=== PATIENT | female | born 1980 | race Caucasian/White ===

== ENCOUNTER 2016-07-06 08:24 | Emergency (ER) | payer OTHER ==
[~2016-07-06] VITALS: Ht 160 cm; Wt 58.1 kg
[~2016-07-06 08:24] MED LIST: ACETAMINOPHEN325 M1; IBUPROFEN 400400 M1; IBUPROFEN 600600 M1 PO; IBUPROFEN 800800 MG PO; IRON325; LANOLIN56 GM; LORTAB 5 MG/5001 TAB PO; NORCO 5-325 TA1 EACH PO; PRENATAL COMPL1 EACH PO; STOOL SOFTENER240 MG PO; VALTREX 500 MG500 MG PO; ZPAK PO
[2016-07-06 08:27] VITALS: BP 108/69
[2016-07-06] MEDS ORDERED: IBUPROFEN 600600 M1 PO (08:46)
[2016-07-06] MEDS ORDERED: PROMETHAZINE D480 ML PO (08:46)
== END 2016-07-06 09:10 | disposition home or self-care (01) ==
LOC: ER 08:24
DX: J06.9 Acute upper respiratory infection, unspecified (principal); Z97.5 Presence of (intrauterine) contraceptive device; F10.99 Alcohol use, unspecified with unspecified alcohol-induced disorder

== ENCOUNTER 2016-07-27 11:02 | Emergency (ER) | payer OTHER ==
[~2016-07-27] VITALS: Ht 160 cm; Wt 59.0 kg
--- NOTE | ~2016-07-27 | EKG ---
[address] [address] ELECTROCARDIOGRAM REPORT Name: SIA FLOWERS [facility] [place] [id number] Admission: 07/27/16 Attend Phys: Discharge: 07/27/16 Date of : 84 Report #: [id number] THIS REPORT FOR: //name// 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 : 1980 Requested By: Good Suazo Order Number: [id number] MD: Rashawn Thompson Measurements Intervals [place] Rate: 62 P: 62 MA: 137 QRS: -22 QRSD: 82 T: 62 QT: 414 QTc: 421 Interpretive Statements Sinus rhythm Probable left atrial enlargement Borderline left axis deviation RSR' in V1 or V2, probably normal variant Compared to ECG 07/24/2016 09:52:27 RSR' in V1 or V2 now present Electronically Signed On 07-27-2016 22:41:20 CDT by Rashawn Thompson [email or web address] <ELECTRONICALLY SIGNED> By: Rashawn Thompson MD 07/27/16 2241 1113 1113 Rashawn Thompson MD /EPI
[~2016-07-27 11:02] MED LIST changes: +PROMETHAZINE D480 ML PO
[2016-07-27 11:59] LABS: ANION GAP 8 mmol/L (7-16); BUN 14 mg/dL (7-18); CALCIUM 9.4 mg/dL (8.5-10.1); CHLORIDE 105 mmol/L (98-107); CO2 24 mmol/L (21-32); CREATININE 0.7 mg/dL (0.6-1.0); GLUCOSE 87 mg/dL (74-106); POTASSIUM 4.2 mmol/L (3.5-5.1); SODIUM 137 mmol/L (136-145)
[2016-07-27 12:03] LABS: ABSOLUTE NEUTROPHILS 3.6 thou/uL (1.4-8.2); BASOPHILS 0.8 % (0.0-2.0); EOSINOPHILS 2.8 % (0.0-3.0); HEMOGLOBIN 13.1 gm/dL (12.0-15.0); LYMPHOCYTES 26.7 % (24.0-44.0); MANUAL DIFF NO; MCH 28.3 pg (26.0-34.0); MCHC 33.7 g/dL (28.0-37.0); MCV 84.1 fL (80.0-100.0); MONOCYTES 11.4 % (1.0-8.0); PLATELET COUNT 235 thou/uL (150-400); POLYS 58.3 % (36.0-66.0); RBC 4.63 mil/uL (4.20-5.00); RDW 13.6 % (10.5-14.5); WBC 6.2 thou/uL (4.0-11.0)
[2016-07-27 12:10] LABS: TROPONIN-I < 0.04 ng/mL (<0.04-0.07)
[2016-07-27] MEDS ORDERED: NORCO 5-325 TA1 EACH PO (13:03)
[2016-07-27] MEDS ORDERED: IBUPROFEN 800800 M1 PO (13:03)
[2016-07-27] MEDS ORDERED: FLEXERIL PO (13:03)
[2016-07-27 13:37] VITALS: BP 120/76
== END 2016-07-27 13:38 | disposition home or self-care (01) ==
LOC: ER 11:02
PROVIDERS: Emergency Medicine
DX: R07.89 Other chest pain (principal); Z98.890 Other specified postprocedural states

== ENCOUNTER 2016-10-05 23:53 | Emergency (ER) | payer OTHER ==
[~2016-10-05] VITALS: Ht 160 cm; Wt 59.0 kg
[~2016-10-05 23:53] MED LIST changes: +FLEXERIL PO; +IBUPROFEN 800800 M1 PO
[2016-10-05 23:58] VITALS: BP 108/67
[2016-10-06] MEDS ORDERED: NAPROSYN500 MG PO (00:08)
[2016-10-06] MEDS ORDERED: LIORESAL 10 MG10 MG PO (00:08)
[2016-10-06 00:39] LABS: ABSOLUTE NEUTROPHILS 3.4 thou/uL (1.4-8.2); BASOPHILS 0.9 % (0.0-2.0); EOSINOPHILS 4.5 % (0.0-3.0); HEMATOCRIT 35.8 % (37.0-47.0); HEMOGLOBIN 12.3 gm/dL (12.0-15.0); LYMPHOCYTES 43.9 % (24.0-44.0); MCH 29.3 pg (26.0-34.0); MCHC 34.4 g/dL (28.0-37.0); MCV 85.1 fL (80.0-100.0); MONOCYTES 8.2 % (1.0-8.0); PLATELET COUNT 282 thou/uL (150-400); POLYS 42.5 % (36.0-66.0); RBC 4.21 mil/uL (4.20-5.00); RDW 13.2 % (10.5-14.5); WBC 7.9 thou/uL (4.0-11.0)
[2016-10-06 00:40] LABS: MANUAL DIFF NO
[2016-10-06 00:47] LABS: CALCIUM 8.9 mg/dL (8.5-10.1); CREATININE 0.8 mg/dL (0.6-1.0); POTASSIUM 3.6 mmol/L (3.5-5.1)
[2016-10-06 00:51] LABS: ALBUMIN 3.7 g/dL (3.4-5.0); TOTAL BILIRUBIN 0.5 mg/dL (<0.1-1.0)
== END 2016-10-06 01:17 | disposition home or self-care (01) ==
LOC: ER 23:53
PROVIDERS: Emergency Medicine
DX: M79.661 Pain in right lower leg (principal); F10.99 Alcohol use, unspecified with unspecified alcohol-induced disorder

== ENCOUNTER 2017-02-23 09:19 | Emergency (ER) | payer OTHER ==
[~2017-02-23] VITALS: Ht 160 cm; Wt 55.3 kg
--- NOTE | ~2017-02-23 | EKG ---
[address] [address] ELECTROCARDIOGRAM REPORT Name: SIA FLOWERS 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: [facility] : 1980 Requested By: Stevenson Wilson Order Number: [id number] MD: Rashawn Thompson Measurements Intervals [place] Rate: 58 P: 43 [place]: 147 QRS: -7 QRSD: 87 T: 54 QT: 400 QTc: 393 Interpretive Statements Sinus rhythm Probable left atrial enlargement Compared to ECG 07/27/2016 11:13:30 Right ventricular hypertrophy now present Electronically Signed On 02-23-2017 16:34:32 CARD FOLDER by Rashawn Thompson [email or web address] <ELECTRONICALLY SIGNED> By: Rashawn Thompson MD 02/23/17 1634 [id number] Rashawn Thompson MD /SEMAJ
[~2017-02-23 09:19] MED LIST changes: +LIORESAL 10 MG10 MG PO; +NAPROSYN500 MG PO
[2017-02-23 09:42] LABS: URINE BILIRUBIN NEGATIVE (Negative); URINE BLOOD NEGATIVE (Negative); URINE COLOR YELLOW; URINE GLUCOSE-RANDOM* NEGATIVE (Negative); URINE KETONES NEGATIVE (Negative); URINE NITRITE NEGATIVE (Negative); URINE PROTEIN (DIPSTICK) NEGATIVE (Negative); URINE UROBILINOGEN 0.2 E.U./dl (0.2-1.0)
[2017-02-23 09:47] LABS: ABSOLUTE NEUTROPHILS 3.2 thou/uL (1.4-8.2); BASOPHILS 1.2 % (0.0-2.0); EOSINOPHILS 3.9 % (0.0-3.0); HEMATOCRIT 40.6 % (37.0-47.0); HEMOGLOBIN 13.2 gm/dL (12.0-15.0); LYMPHOCYTES 31.9 % (24.0-44.0); MANUAL DIFF NO; MCH 28.1 pg (26.0-34.0); MCHC 32.5 g/dL (28.0-37.0); MCV 86.3 fL (80.0-100.0); MONOCYTES 9.3 % (1.0-8.0); PLATELET COUNT 277 thou/uL (150-400); POLYS 53.7 % (36.0-66.0); RDW 13.9 % (10.5-14.5)
[2017-02-23 09:54] LABS: CALCIUM 9.5 mg/dL (8.5-10.1); CREATININE 0.7 mg/dL (0.6-1.0); POTASSIUM 3.3 mmol/L (3.5-5.1)
[2017-02-23 10:00] LABS: ALBUMIN 4.1 g/dL (3.4-5.0); TOTAL BILIRUBIN 0.5 mg/dL (<0.1-1.0); TOTAL PROTEIN 7.8 g/dL (6.4-8.2)
[2017-02-23] MEDS ORDERED: HYDROCODONE-AP1 EAC6 PO (11:18)
[2017-02-23 12:03] VITALS: BP 108/75
[2017-02-24 23:10] LABS: CHLAMYDIA TRACHOMATIS-PCR Negative (Negative); NEISSERIA GONORRHEA-PCR Negative (Negative)
== END 2017-02-23 12:03 | disposition home or self-care (01) ==
LOC: ER 09:19
PROVIDERS: Physician Assistant
DX: N83.202 Unspecified ovarian cyst, left side (principal); R07.89 Other chest pain; F10.99 Alcohol use, unspecified with unspecified alcohol-induced disorder

== ENCOUNTER 2017-05-13 11:58 | Emergency (ER) | payer OTHER ==
[~2017-05-13] VITALS: Ht 157.5 cm; Wt 56.7 kg
[~2017-05-13 11:58] MED LIST changes: +HYDROCODONE-AP1 EAC6 PO
[2017-05-13] MEDS ORDERED: NORCO 5-325 TA1 EACH PO (13:53)
[2017-05-13] MEDS ORDERED: IBUPROFEN 600600 M1 PO (13:53)
== END 2017-05-13 15:00 | disposition home or self-care (01) ==
LOC: ER 11:58
DX: M25.562 Pain in left knee (principal); W00.1XXA Fall from stairs and steps due to ice and snow, initial encounter; Y93.89 Activity, other specified; Y92.89 Other specified places as the place of occurrence of the external cause; Y99.8 Other external cause status

== ENCOUNTER 2017-06-25 13:44 | Emergency (ER) | payer OTHER ==
[~2017-06-25] VITALS: Ht 160 cm; Wt 56.7 kg
[2017-06-25] MEDS ORDERED: HYDROCODONE-AP1 EAC6 PO (15:29)
[2017-06-25] MEDS ORDERED: CYCLOBENZAPRINE5 MG PO (15:29)
[2017-06-25 15:49] VITALS: BP 102/66
== END 2017-06-25 15:49 | disposition home or self-care (01) ==
LOC: ER 13:44
DX: M25.562 Pain in left knee (principal); M62.838 Other muscle spasm

== ENCOUNTER 2017-07-18 14:12 | Emergency (ER) | payer OTHER ==
[~2017-07-18] VITALS: Ht 160 cm; Wt 58.1 kg
[~2017-07-18 14:12] MED LIST changes: +CYCLOBENZAPRINE5 MG PO
[2017-07-18 14:31] LABS: URINE BILIRUBIN NEGATIVE (Negative); URINE BLOOD NEGATIVE (Negative); URINE CLARITY CLEAR; URINE COLOR YELLOW; URINE GLUCOSE-RANDOM* NEGATIVE (Negative); URINE KETONES NEGATIVE (Negative); URINE LEUKOCYTES NEGATIVE (Negative); URINE NITRITE NEGATIVE (Negative); URINE PROTEIN (DIPSTICK) NEGATIVE (Negative); URINE SPECIFIC GRAVITY 1.015 (1.005-1.035); URINE UROBILINOGEN 0.2 E.U./dl (0.2-1.0)
[2017-07-18] MEDS ORDERED: PHENERGAN 25 MG25 M1 PO (14:32)
[2017-07-18 16:10] VITALS: BP 119/70
== END 2017-07-18 16:21 | disposition home or self-care (01) ==
LOC: ER 14:12
PROVIDERS: Emergency Medicine
DX: G43.909 Migraine, unspecified, not intractable, without status migrainosus (principal)

== ENCOUNTER 2017-10-06 10:38 | Emergency (ER) | payer OTHER ==
[~2017-10-06] VITALS: Ht 160 cm; Wt 59.0 kg
[~2017-10-06 10:38] MED LIST changes: +PHENERGAN 25 MG25 M1 PO
[2017-10-06] MEDS ORDERED: ZOFRAN ODT4 MG PO (12:47)
[2017-10-06] MEDS ORDERED: ANTIVERT25 MG PO (12:47)
[2017-10-06 13:51] VITALS: BP 110/78
== END 2017-10-06 13:53 | disposition home or self-care (01) ==
LOC: ER 10:38
DX: H83.09 Labyrinthitis, unspecified ear (principal); G43.909 Migraine, unspecified, not intractable, without status migrainosus

== ENCOUNTER 2017-10-08 19:24 | Emergency (ER) | payer OTHER ==
[~2017-10-08] VITALS: Ht 160 cm; Wt 59.0 kg
[~2017-10-08 19:24] MED LIST changes: +ANTIVERT25 MG PO; +ZOFRAN ODT4 MG PO
[2017-10-08 22:27] VITALS: BP 112/73
== END 2017-10-08 22:28 | disposition home or self-care (01) ==
LOC: ER 19:24
DX: R42 Dizziness and giddiness (principal); G43.909 Migraine, unspecified, not intractable, without status migrainosus; Z98.890 Other specified postprocedural states

== ENCOUNTER 2018-02-08 11:18 | Emergency (ER) | payer BC, OTHER ==
[~2018-02-08] VITALS: Ht 160 cm; Wt 59.0 kg
--- NOTE | ~2018-02-08 | EKG ---
[address] [place] [address] ELECTROCARDIOGRAM REPORT Name: SIA FLOWERS [id number] Admission: 02/08/18 Attend Phys: Discharge: 02/08/18 Date of : 84 Report #: [id number] THIS REPORT FOR: //name// 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 : 1980 Requested By: Stevenson Wilson Order Number: [id number] MD: Cornell Staples Measurements Intervals [place] Rate: 55 P: 66 MD: 150 QRS: -8 QRSD: 91 T: 51 QT: 444 QTc: 425 Interpretive Statements Sinus rhythm Right ventricular conduction delay Compared to ECG 02/23/2017 09:58:52 No significant change was found Electronically Signed On 02-09-2018 8:40:54 DOPE WEIGH OPERATOR by Cornell Staples [email or web address] <ELECTRONICALLY SIGNED> By: Cornell Staples MD, [facility] 02/09/18 0840 1138 37 Cornell Staples MD, FACC /EPI
[2018-02-08 12:15] LABS: ABSOLUTE NEUTROPHILS 2.6 thou/uL (1.4-8.2); BASOPHILS 0.9 % (0.0-2.0); EOSINOPHILS 3.5 % (0.0-3.0); HEMATOCRIT 37.7 % (37.0-47.0); HEMOGLOBIN 12.8 gm/dL (12.0-15.0); LYMPHOCYTES 33.7 % (24.0-44.0); MCH 28.8 pg (26.0-34.0); MCV 84.5 fL (80.0-100.0); MONOCYTES 11.5 % (1.0-8.0); PLATELET COUNT 308 thou/uL (150-400); POLYS 50.4 % (36.0-66.0); RBC 4.47 mil/uL (4.20-5.00); RDW 13.5 % (10.5-14.5); WBC 5.2 thou/uL (4.0-11.0)
[2018-02-08 12:17] LABS: URINE BILIRUBIN NEGATIVE (Negative); URINE BLOOD NEGATIVE (Negative); URINE CLARITY CLEAR; URINE COLOR YELLOW; URINE GLUCOSE-RANDOM* NEGATIVE (Negative); URINE KETONES NEGATIVE (Negative); URINE PROTEIN (DIPSTICK) NEGATIVE (Negative); URINE UROBILINOGEN 0.2 E.U./dl (0.2-1.0)
[2018-02-08 12:23] LABS: URINE LEUKOCYTES-REFLEX TRACE (Negative); URINE NITRITE-REFLEX POSITIVE (Negative)
[2018-02-08 12:24] LABS: CASTS None Seen /LPF (None Seen); CRYSTALS None Seen /LPF (None Seen); SQUAMOUS None Seen /LPF (0-3); URINE RBC None Seen /HPF (0-2); URINE WBC-REFLEX 0-5 Rare /HPF (0-5)
[2018-02-08 12:30] LABS: CALCIUM 10.6 mg/dL (8.5-10.1); CREATININE 0.7 mg/dL (0.6-1.0); POTASSIUM 3.8 mmol/L (3.5-5.1)
[2018-02-08 12:35] LABS: ALBUMIN 4.2 g/dL (3.4-5.0); TOTAL BILIRUBIN 0.4 mg/dL (<0.1-1.0); TOTAL PROTEIN 7.6 g/dL (6.4-8.2)
[2018-02-08 13:02] VITALS: BP 105/73
[2018-02-08] MEDS ORDERED: VALIUM5 MG PO (13:10)
== END 2018-02-08 13:16 | disposition home or self-care (01) ==
LOC: ER 11:18
PROVIDERS: Physician Assistant
DX: R42 Dizziness and giddiness (principal); G43.909 Migraine, unspecified, not intractable, without status migrainosus; Z98.890 Other specified postprocedural states

== ENCOUNTER 2018-04-29 16:42 | Emergency (ER) | payer BC, OTHER ==
[~2018-04-29] VITALS: Ht 157.5 cm; Wt 59.0 kg
[~2018-04-29 16:42] MED LIST changes: +VALIUM5 MG PO
[2018-04-29 17:20] LABS: URINE BILIRUBIN NEGATIVE (Negative); URINE BLOOD NEGATIVE (Negative); URINE CLARITY SL CLOUDY; URINE COLOR YELLOW; URINE GLUCOSE-RANDOM* NEGATIVE (Negative); URINE KETONES NEGATIVE (Negative); URINE LEUKOCYTES NEGATIVE (Negative); URINE NITRITE NEGATIVE (Negative); URINE PROTEIN (DIPSTICK) NEGATIVE (Negative); URINE UROBILINOGEN 0.2 E.U./dl (0.2-1.0)
[2018-04-29 17:20] LABS: ABSOLUTE NEUTROPHILS 3.8 thou/uL (1.4-8.2); BASOPHILS 1.1 % (0.0-2.0); EOSINOPHILS 0.7 % (0.0-3.0); HEMATOCRIT 39.4 % (37.0-47.0); HEMOGLOBIN 13.3 gm/dL (12.0-15.0); LYMPHOCYTES 23.3 % (24.0-44.0); MCH 28.6 pg (26.0-34.0); MCHC 33.8 g/dL (28.0-37.0); MCV 84.7 fL (80.0-100.0); PLATELET COUNT 350 thou/uL (150-400); POLYS 66.9 % (36.0-66.0); RBC 4.65 mil/uL (4.20-5.00); RDW 13.3 % (10.5-14.5); WBC 5.6 thou/uL (4.0-11.0)
[2018-04-29 17:24] LABS: ANION GAP 10 mmol/L (7-16); BUN 15 mg/dL (7-18); CALCIUM 10.3 mg/dL (8.5-10.1); CHLORIDE 102 mmol/L (98-107); CO2 27 mmol/L (21-32); CREATININE 0.7 mg/dL (0.6-1.0); GLUCOSE 97 mg/dL (74-106); POTASSIUM 3.9 mmol/L (3.5-5.1); SODIUM 139 mmol/L (136-145)
[2018-04-29 17:32] LABS: ALBUMIN 4.1 g/dL (3.4-5.0); LIPASE 152 U/L (73-393); SGOT 17 U/L (15-37); SGPT 19 U/L (30-65); TOTAL BILIRUBIN 0.5 mg/dL (<0.1-1.0); TROPONIN-I <0.06 ng/mL (<0.06)
[2018-04-29 18:37] VITALS: BP 115/82
--- NOTE | 2018-04-30 07:54 | EKG ---
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: [place] : 1980 Requested By: Ana Page Order Number: [id number] MD: Cornell Staples Measurements Intervals [place] Rate: 58 P: 29 [place]: 149 QRS: -14 QRSD: 85 T: 45 QT: 435 QTc: 428 Interpretive Statements Sinus bradycardia Otherwise normal tracing Compared to ECG 02/08/2018 11:38:36 Right ventricular conduction delay is no longer present Electronically Signed On 04-30-2018 7:54:32 WHARF LABORER by Cornell Staples [email or web address] <ELECTRONICALLY SIGNED> By: Cornell Staples MD, [facility] 04/30/18 0754 1718 17 Cornell Staples MD, FACC /EPI
== END 2018-04-29 18:37 | disposition home or self-care (01) ==
LOC: ER 16:42
PROVIDERS: Physician Assistant
DX: G43.909 Migraine, unspecified, not intractable, without status migrainosus (principal); Z98.890 Other specified postprocedural states

== ENCOUNTER 2018-11-25 22:03 | Emergency (ER) | payer BC, OTHER ==
[~2018-11-25] VITALS: Ht 160 cm; Wt 59.0 kg
[2018-11-25 22:06] VITALS: BP 123/64
[2018-11-26] MEDS ORDERED: MOBIC15 MG PO ×2 (00:31→00:46)
== END 2018-11-26 00:32 | disposition home or self-care (01) ==
LOC: ER 22:03
DX: S83.8X1A Sprain of other specified parts of right knee, initial encounter (principal); Z98.890 Other specified postprocedural states; G43.909 Migraine, unspecified, not intractable, without status migrainosus; V89.2XXA Person injured in unspecified motor-vehicle accident, traffic, initial encounter; Y92.89 Other specified places as the place of occurrence of the external cause; Y93.89 Activity, other specified; Y99.8 Other external cause status

== ENCOUNTER 2019-05-04 19:58 | Emergency (ER) | payer BC, OTHER ==
[~2019-05-04] VITALS: Ht 165.1 cm; Wt 68.0 kg
[~2019-05-04 19:58] MED LIST changes: +MOBIC15 MG PO
[2019-05-04] MEDS ORDERED: TESSALON PERLE100 M1 PO (22:21)
[2019-05-04] MEDS ORDERED: BUTALB-APAP-CA1 EACH PO ×2 (23:30→23:31)
[2019-05-04 23:55] VITALS: BP 120/71
== END 2019-05-04 23:55 | disposition home or self-care (01) ==
LOC: ER 19:58
DX: G43.909 Migraine, unspecified, not intractable, without status migrainosus (principal); R05 Cough; R50.9 Fever, unspecified; M79.10 Myalgia, unspecified site; Z98.890 Other specified postprocedural states

== ENCOUNTER 2019-05-28 20:03 | Emergency (ER) | payer BC, OTHER ==
[~2019-05-28] VITALS: Ht 160 cm; Wt 61.2 kg
[~2019-05-28 20:03] MED LIST changes: +BUTALB-APAP-CA1 EACH PO; +TESSALON PERLE100 M1 PO
[2019-05-28] MEDS ORDERED: AUGMENTIN400 MG/53 (20:15)
[2019-05-28] MEDS ORDERED: LIDOCAINE1 EACH TRANSDERM (21:22)
[2019-05-28] MEDS ORDERED: NAPROSYN500 MG PO (21:22)
[2019-05-28 21:28] VITALS: BP 121/71
--- NOTE | 2019-05-29 13:22 | EKG ---
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: [facility] : 1980 Requested By: Ana Berumen Order Number: [id number] MD: Cornell Staples Measurements Intervals [place] Rate: 75 P: 34 [place]: 147 QRS: 18 QRSD: 94 T: 45 QT: 374 QTc: 418 Interpretive Statements Sinus rhythm RSR' in V1 or V2, probably normal variant Compared to ECG 04/29/2018 17:18:57 RSR' in V1 or V2 now present Sinus bradycardia no longer present Electronically Signed On 05-29-2019 13:21:48 CDT by Cornell Staples [email or web address] <ELECTRONICALLY SIGNED> By: Cornell Staples MD, [facility] 05/29/19 1321 05 05 Cornell Staples MD, [facility] /EPI
== END 2019-05-28 21:32 | disposition home or self-care (01) ==
LOC: ER 20:03
DX: R07.89 Other chest pain (principal); G43.909 Migraine, unspecified, not intractable, without status migrainosus; Z98.890 Other specified postprocedural states

== ENCOUNTER 2019-09-22 10:44 | Emergency (ER) | payer BC, OTHER ==
[~2019-09-22] VITALS: Ht 157.5 cm; Wt 62.6 kg
[~2019-09-22 10:44] MED LIST changes: +AUGMENTIN400 MG/53; +LIDOCAINE1 EACH TRANSDERM
[2019-09-22 12:29] LABS: URINE BILIRUBIN NEGATIVE (Negative); URINE BLOOD NEGATIVE (Negative); URINE CLARITY CLEAR; URINE COLOR YELLOW; URINE GLUCOSE-RANDOM* NEGATIVE (Negative); URINE KETONES TRACE (Negative); URINE LEUKOCYTES-REFLEX NEGATIVE (Negative); URINE NITRITE-REFLEX NEGATIVE (Negative); URINE PROTEIN (DIPSTICK) NEGATIVE (Negative); URINE SPECIFIC GRAVITY >= 1.030 (1.005-1.035); URINE UROBILINOGEN 0.2 E.U./dl (0.2-1.0)
[2019-09-22 13:45] VITALS: BP 114/71
--- NOTE | 2019-09-23 14:43 | NUR ---
CALLED PT TO REPORT RESULTS. NO ANSWER, LEFT MESSAGE FOR PT TO RETURN CALL REGARDING LABS.
== END 2019-09-22 13:45 | disposition home or self-care (01) ==
LOC: ER 10:44
PROVIDERS: Emergency Medicine
DX: U07.1 COVID-19 (principal); B34.9 Viral infection, unspecified; G43.909 Migraine, unspecified, not intractable, without status migrainosus; R11.0 Nausea; Z98.890 Other specified postprocedural states; Z79.899 Other long term (current) drug therapy; Z79.2 Long term (current) use of antibiotics

== ENCOUNTER → 2019-10-25 | Emergency (ER) | payer BC, OTHER | LOC: ER 20:11 | DX: R05 Cough (principal); Z53.21 Procedure and treatment not carried out due to patient leaving prior to being seen by health care provider ==

== ENCOUNTER 2020-10-01 05:56 | Emergency (ER) | payer BC, OTHER ==
[~2020-10-01] VITALS: Ht 160 cm; Wt 61.2 kg
[2020-10-01] MEDS ORDERED: IMITREX 25 MG T25 MG PO (06:09)
[2020-10-01 06:38] LABS: URINE BILIRUBIN NEGATIVE (Negative); URINE BLOOD 1+ (Negative); URINE CLARITY CLEAR; URINE COLOR YELLOW; URINE GLUCOSE-RANDOM* NEGATIVE (Negative); URINE KETONES NEGATIVE (Negative); URINE LEUKOCYTES-REFLEX NEGATIVE (Negative); URINE NITRITE-REFLEX NEGATIVE (Negative); URINE PROTEIN (DIPSTICK) NEGATIVE (Negative); URINE SPECIFIC GRAVITY >= 1.030 (1.005-1.035); URINE UROBILINOGEN 0.2 E.U./dl (0.2-1.0)
[2020-10-01 06:58] LABS: CASTS None Seen /LPF (None Seen); MUCUS >6 Heavy strn/LPF (None Seen); SQUAMOUS 4-10 Moderate /LPF (0-3)
[2020-10-01 06:59] LABS: BACTERIA-REFLEX 1-9 Few /HPF (None Seen); CALCIUM OXALATE 0-3 Few /LPF (None Seen); URINE RBC 1-2 Rare /HPF (NONE SEEN); URINE WBC-REFLEX 0-5 Rare /HPF (0-5)
[2020-10-01] MEDS ORDERED: LOPERAMIDE2 MG PO (07:02)
[2020-10-01] MEDS ORDERED: ZOFRAN ODT4 MG PO (07:02)
[2020-10-01 07:17] VITALS: BP 119/65
== END 2020-10-01 07:17 | disposition home or self-care (01) ==
LOC: ER 05:56
PROVIDERS: Student in an Organized Health Care Education/Training Program
DX: K52.9 Noninfective gastroenteritis and colitis, unspecified (principal); G43.909 Migraine, unspecified, not intractable, without status migrainosus; Z79.899 Other long term (current) drug therapy; Z72.89 Other problems related to lifestyle

== ENCOUNTER 2021-05-05 19:45 | Emergency (ER) | payer OTHER ==
[~2021-05-05] VITALS: Ht 160 cm; Wt 58.1 kg
[~2021-05-05 19:45] MED LIST changes: +IMITREX 25 MG T25 MG PO; +LOPERAMIDE2 MG PO
[2021-05-05] MEDS ORDERED: INHALER (20:11)
[2021-05-05] MEDS ORDERED: [UNRECOGNIZED DRUG - REMARK] (20:13)
[2021-05-05] MEDS ORDERED: TESSALON PERLE100 MG PO (20:13)
[2021-05-05] MEDS ORDERED: DELSYM COU30 MG/5 M1 PO (21:04)
[2021-05-05 21:19] VITALS: BP 112/86
== END 2021-05-05 21:20 | disposition home or self-care (01) ==
LOC: ER 19:45
DX: J40 Bronchitis, not specified as acute or chronic (principal)